=== PATIENT | female | born 1995 | race American Indian/Alaskan Native ===

== ENCOUNTER 2020-02-22 03:21 | Emergency (ER) | payer OTHER ==
[~2020-02-22] VITALS: Ht 162.6 cm; Wt 65.8 kg
[2020-02-22 03:52] VITALS: Ht 162.6 cm; Wt 65.8 kg
[2020-02-22 05:24] LABS: BASOPHIL % 0.5 % (0-2); PLATELET COUNT 231 x10^3mcL (130-400); RED CELL DISTRIBUTION WIDTH 12.9 % (11.5-14.5)
[2020-02-22 05:26] LABS: microscopic required? YES; urine erythrocyte TRACE (NEGATIVE)
[2020-02-22 05:38] LABS: AMPHETAMINE QUAL UR NONE DETECTED (See below)
[2020-02-22 05:54] LABS: CALCIUM 8.5 mg/dL (8.5-10.1); CARBON DIOXIDE 20.3 mmol/L (21-32); CHLORIDE SERUM 106 mmol/L (98-107); CREATININE SERUM 0.9 mg/dL (0.6-1.0); GFR1 > 60 mL/min; GLUCOSE SERUM 102 mg/dL (74-106); POTASSIUM SERUM 3.5 mmol/L (3.5-5.1); SODIUM SERUM 142 mmol/L (136-145)
[2020-02-22 08:43] VITALS: BP 98/43
== END 2020-02-22 08:40 | disposition short-term general hospital (02) ==
LOC: ED 03:21
PROVIDERS: Emergency Medicine
DX: T76.21XA Adult sexual abuse, suspected, initial encounter (principal)
CPT/HCPCS: 87491; 87591; G0480; J0456; J0696; J1630; J2060; J2405; J7030; J7050

== ENCOUNTER → 2020-05-13 | Outpatient (CLI) | payer OTHER | END | disposition home or self-care (01) | LOC: RD 12:43 | PROVIDERS: ATTEND Orthopaedic Surgery | DX: M25.572 Pain in left ankle and joints of left foot (principal) ==